=== PATIENT | male | born 1965 ===

== ENCOUNTER 2022-07-06 19:24 | Emergency (ER) | payer SELFPAY ==
[2022-07-07] MEDS ORDERED: HYDROcodone/ACETAMINOPHEN 5-325 MG TAB PO STA (06:21)
--- NOTE | 2022-07-07 06:27 | Emergency Department Report ---
ED ENT HPI - General Chief complaint: Dental/Oral Stated complaint: INFECTION Time Seen by Provider: 07/07/22 06:16 Source: patient Mode of arrival: Ambulatory Limitations: No Limitations - History of Present Illness MD complaint: tooth pain -: Gradual Location: tooth # Severity: mild, moderate Quality: aching, dull Consistency: constant Improves with: none Worsens with: eating Context- Dental: history of dental caries, poor dental care Associated Symptoms: gum swelling, toothache - Related Data Previous Rx's Medication Instructions Recorded Last Taken Type Chlorhexidine Mouthwash [Peridex] 15 ml MM BID #1 bottle 07/07/22 Unknown Rx Clindamycin [Clindamycin CAP] 150 mg PO Q8HR #21 capsule 07/07/22 Unknown Rx Ketorolac [Toradol] 10 mg PO Q6H PRN #15 tablet 07/07/22 Unknown Rx Lidocaine Viscous 2% 5 ml MM Q3H PRN #120 udc 07/07/22 Unknown Rx ED Dental HPI - General Chief complaint: Dental/Oral Stated complaint: INFECTION Time Seen by Provider: 07/07/22 06:16 Source: patient Mode of arrival: Ambulatory Limitations: No Limitations - Related Data Previous Rx's Medication Instructions Recorded Last Taken Type Chlorhexidine Mouthwash [Peridex] 15 ml MM BID #1 bottle 07/07/22 Unknown Rx Clindamycin [Clindamycin CAP] 150 mg PO Q8HR #21 capsule 07/07/22 Unknown Rx Ketorolac [Toradol] 10 mg PO Q6H PRN #15 tablet 07/07/22 Unknown Rx Lidocaine Viscous 2% 5 ml MM Q3H PRN #120 udc 07/07/22 Unknown Rx ED Review of Systems ROS: Stated complaint: INFECTION Other details as noted in HPI Comment: All other systems reviewed and negative ED Past Medical Hx - Past Medical History Previous Medical History?: No - Surgical History Past Surgical History?: No - Social History Smoking Status: Never Smoker Substance Use Type: None - Medications Home Medications: Home Medications Medication Instructions Recorded Confirmed Last Taken Type Chlorhexidine Mouthwash [Peridex] 15 ml MM BID #1 bottle 07/07/22 Unknown Rx Clindamycin [Clindamycin CAP] 150 mg PO Q8HR #21 capsule 07/07/22 Unknown Rx Ketorolac [Toradol] 10 mg PO Q6H PRN #15 tablet 07/07/22 Unknown Rx Lidocaine Viscous 2% 5 ml MM Q3H PRN #120 udc 07/07/22 Unknown Rx ED Physical Exam - General Limitations: No Limitations General appearance: alert, in no apparent distress - Head Head exam: Present: atraumatic, normocephalic - Eye Eye exam: Present: normal appearance - ENT ENT exam: Present: mucous membranes moist, TM's normal bilaterally, normal external ear exam, other (dental caries diffuese. with dental pain onplation. airway patent.). Absent: normal exam, normal orophraynx - Neck Neck exam: Present: normal inspection - Respiratory Respiratory exam: Present: normal lung sounds bilaterally. Absent: respiratory distress - Cardiovascular Cardiovascular Exam: Present: regular rate, normal rhythm. Absent: systolic murmur, diastolic murmur, rubs, gallop - GI/Abdominal GI/Abdominal exam: Present: soft, normal bowel sounds - Rectal Rectal exam: Present: deferred - Extremities Exam Extremities exam: Present: normal inspection - Back Exam Back exam: Present: normal inspection - Neurological Exam Neurological exam: Present: alert, oriented X3 - Psychiatric Psychiatric exam: Present: normal affect, normal mood - Skin Skin exam: Present: warm, dry, intact, normal color. Absent: rash ED Course Vital Signs 07/06/22 07/07/22 21:02 02:00 Temperature 100.4 F H 98.8 F Pulse Rate 104 H 104 H Respiratory 16 20 Rate Blood Pressure 118/98 173/95 O2 Sat by Pulse 98 99 Oximetry Critical care attestation.: If time is entered above; I have spent that time in minutes in the direct care of this critically ill patient, excluding procedure time. ED Disposition Clinical Impression: Infected dental caries Disposition: 01 HOME / SELF CARE / HOMELESS Is pt being admited?: No Does the pt Need Aspirin: No Condition: Stable Instructions: Dental Abscess, Dental Extraction, [id number], Dental Abscess, [id number] Prescriptions: Clindamycin [Clindamycin CAP] 150 mg PO Q8HR #21 capsule Lidocaine Viscous 2% 5 ml MM Q3H PRN #120 udc PRN Reason: Pain, Moderate (4-6) Chlorhexidine Mouthwash [Peridex] 15 ml MM BID #1 bottle Ketorolac [Toradol] 10 mg PO Q6H PRN #15 tablet PRN Reason: Pain Referrals: [facility] [Outside] - 3-5 Days
[2022-07-07 07:28] VITALS: BP 171/92
== END 2022-07-07 19:00 | disposition home or self-care (01) ==
LOC: ED 19:24
DX: K02.9 Dental caries, unspecified (principal); Z53.21 Procedure and treatment not carried out due to patient leaving prior to being seen by health care provider; Z79.899 Other long term (current) drug therapy
CPT/HCPCS: 99282